=== PATIENT | male | born 1960 | race American Indian/Alaskan Native ===

== ENCOUNTER 2017-07-15 13:31 | Outpatient (CLI) | payer BC ==
[2017-07-15 14:12] LABS: Blood Urea Nitrogen 11 mg/dL (9-20)
--- NOTE | 2017-07-16 10:48 | Magnetic Resonance Report ---
MRI ABDOMEN WITHOUT AND WITH CONTRAST : 07/15/17 14:00:00 CLINICAL: Left adrenal nodule. COMPARISON :05/11/11 TECHNIQUE: Axial T1 in phase and opposed phase, coronal and axial T2 and axial T2 fat sat sequences plus multiphase postcontrast T1 fat sat sequences on a 1.5 Valarie magnet. 20.0 cc of Multihance was injected intravenously for the contrast portion of the exam and consent was obtained prior to the administration of the contrast. FINDINGS: An enlarged left adrenal gland measures approximately 3.4 x 2.5 x 2.6 cm. It has a predominant fatty component which is demonstrated by uniform signal dropout on the opposed phase axial T1 sequence. It demonstrates heterogeneous enhancement postcontrast. It has enlarged since the 2010 exam. The right adrenal gland is normal. The kidneys are normal size with normal nondilated renal collecting systems and ureters. A right lower pole cyst measures 1.3 cm and a second right lower pole cyst measures 6 mm. Normal liver size, contour and overall signal. An 8mm right posterior hepatic cavernous hemangioma is unchanged. Normal gallbladder and bile ducts. The stomach, duodenum, pancreas and spleen are normal. No ascites. Normal aorta and inferior vena cava. IMPRESSION: 1. 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 2. Stable 8mm right hepatic cavernous hemangioma. 3. Small right renal cysts.
== END 2017-07-15 13:32 | disposition home or self-care (01) ==
LOC: MRI 13:31
PROVIDERS: ATTEND Specialist
DX: D35.02 Benign neoplasm of left adrenal gland (principal); E27.8 Other specified disorders of adrenal gland; N28.1 Cyst of kidney, acquired; D18.09 Hemangioma of other sites; E11.9 Type 2 diabetes mellitus without complications; I10 Essential (primary) hypertension
CPT/HCPCS: 36415; 74183; 82565; 84520; A9577

== ENCOUNTER 2018-01-20 13:23 | Outpatient (CLI) | payer BC ==
--- NOTE | 2018-01-21 10:01 | Magnetic Resonance Report ---
MRI ABDOMEN WITHOUT CONTRAST : 01/20/18 14:00:00 CLINICAL: Followup abnormal left adrenal gland. COMPARISON :07/15/17 and 11/11/10 TECHNIQUE: Axial T1 in phase and opposed phase, coronal and axial T2 fat sat and axial STIR sequences on a 1.5 Valarie magnet. FINDINGS: Stable enlargement of the left adrenal gland. The entire gland demonstrates hypointense signal on opposed phase images which is indicative of fat. It measures approximately 3.2 x 2.8 x 2.8 cm. The right adrenal gland is normal. Stable 8mm right hepatic cavernous hemangioma and stable right renal cyst measuring approximately 1 cm. Normal gallbladder and bile ducts. Normal stomach, pancreas, duodenum and spleen. Normal aorta and inferior vena cava. No ascites. The imaged portions of small bowel and colon are normal. IMPRESSION: Stable probably benign enlargement of the left adrenal gland with one or more small adenomas.
== END 2018-01-20 13:24 | disposition home or self-care (01) ==
LOC: MRI 13:23
PROVIDERS: ATTEND Family Medicine
DX: D35.2 Benign neoplasm of pituitary gland (principal); E27.9 Disorder of adrenal gland, unspecified; D18.09 Hemangioma of other sites; N28.1 Cyst of kidney, acquired
CPT/HCPCS: 74181